=== PATIENT | male | born 1980 | race Caucasian/White ===

== ENCOUNTER 2025-01-12 08:32 | Outpatient (AMB) | payer OTHER, SELFPAY ==
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
[2025-01-12 08:40] VITALS: BP 125/72; PULSE 73; O2SAT 96; BMI 29.3
== END 2025-01-12 09:16 | disposition home or self-care (01) ==
LOC: HO.PMC 08:33
PROVIDERS: PCP Internal Medicine; Visit Provider Nurse Practitioner Family
DX: M54.2 Cervicalgia (principal); M54.9 Dorsalgia, unspecified; G89.29 Other chronic pain; M25.50 Pain in unspecified joint; M79.7 Fibromyalgia
CPT/HCPCS: 99204